=== PATIENT | female | born 1965 | race Caucasian/White ===

== ENCOUNTER → 2017-02-10 | Outpatient (CLI) | payer OTHER ==
[~2017-02-10] MED LIST: ALBUTEROL17 GM INH; CELECOXIB200 MG PO; CHOLESTEROL PILL; CIPRO PO; CYMBALTA PO; DIAZEPAM PO; HYDROCODONE/APA1 T16 PO; LIPITOR40 MG PO; NEURONTIN100 MG PO; PANTOPRAZOLE SO40 MG PO; PYRIDIUM PO; REGLAN PO; STOMACH PILL; TRAZODONE PO; VITAMIN D1000 UNI2 PO; [UNRECOGNIZED DRUG - REMARK]
--- NOTE | ~2017-02-10 | MY11 ---
[facility] A Service of [facility] RADIOLOGY TEXT RESULTS PATIENT: COURTNEY CARRERA LOCATION: [facility] : 63 UNIT #: [id number] AGE: [address]: Umer Sepulveda MD SEX: F ORDER DR: [id number] [facility] [address] [place], [place] [address] [id number] O MR#: [id number] Acc #: [id number] NAME: COURTNEY CARRERA : 1965 SEX: F STUDY DATE/TIME: 02/10/2017 13:40 UNIT: [facility] ROOM: STUDY DESCRIPTION: MY Mammogram Screening Dig [place]wn Attending Physician: Umer Sepulveda M.D. Referring Physician: Umer Sepulveda M.D. Ordering Physician: Umer Sepulveda M.D. Primary Care Physician: Umer Sepulveda M.D. MEDICAL IMAGING REPORT This report is preliminary unless electronic signature is present EXAM Digital screening mammogram, 02/10/2017, [facility]. HISTORY 51-year-old woman no risk elevation. Annual screen. COMPARISON Mammograms date to 09/26/2010 with most recent, 02/06/2016. FINDINGS Digital imaging of each breast was completed utilizing a two-view examination of each breast in craniocaudal and mediolateral-oblique projections. Review and interpretation of digital mammograms include a second review in conjunction with FDA-approved CAD device. There is a normal parenchymal presentation bilaterally consistent with the patient's age. There are no breast masses imaged and no parenchymal asymmetry is visualized. There are no suspicious microcalcifications and I see no focal architectural disturbance. IMPRESSION Negative screening digital mammogram. One-year followup recommended. Patients over the age of 40 are entered into a reminder system with target due date for the next mammogram. A result letter will also be sent to the patient. BIRADS: 1 Negative ADDENDUM Breast parenchyma is predominantly fatty replaced. [facility] A Service of [facility] RADIOLOGY TEXT RESULTS PATIENT: COURTNEY CARRERA LOCATION: [facility] : 63 UNIT #: [id number] AGE: [address]: Umer Sepulveda MD SEX: F ORDER DR: Dictated by... Nitin Suarez M.D. THIS IS AN ELECTRONICALLY VERIFIED REPORT Nitin Suarez M.D. at 02/10/2017 4:00 PM JULISA/benny TD: 02/10/2017 15:54 JOB #: [id number] MEDICAL IMAGING REPORT Page 1 of 1 COPY
== END | disposition home or self-care (01) ==
LOC: CWCC 13:15
DX: Z12.31 Encounter for screening mammogram for malignant neoplasm of breast (principal)
CPT/HCPCS: G0202

== ENCOUNTER → 2017-03-14 | Outpatient (CLI) | payer OTHER ==
--- NOTE | ~2017-03-14 | CT98 ---
[facility] A Service of [facility] & [facility] RADIOLOGY TEXT RESULTS PATIENT: COURTNEY CARRERA LOCATION: [facility] : 63 UNIT #: [id number] AGE: [address]: Micky Marcus MD SEX: F ORDER DR: [id number] [address] [address] [id number] O MR#: [id number] Acc #: [id number] NAME: COURTNEY CARRERA : 1965 SEX: F STUDY DATE/TIME: 03/14/2017 13:30 UNIT: [facility] ROOM: STUDY DESCRIPTION: CT Lumbar Spine Wo Cont Attending Physician: Micky Marcus M.D. Referring Physician: Micky Marcus M.D. Ordering Physician: Micky Marcus M.D. Primary Care Physician: Umer Sepulveda M.D. MEDICAL IMAGING REPORT This report is preliminary unless electronic signature is present. EXAM Lumbar spine CT no contrast DATE 03/14/2017 PROCEDURE Axial unenhanced lumbar CT with multiplanar reformats. This CT exam was performed with one or more of the following radiation dose reduction techniques: automatic exposure control, adjustment of mA and/or kV according to patient size, and iterative reconstruction. COMPARISON Lumbar spine MRI from outside facility dated 12/21/2016 CLINICAL HISTORY Back and right leg pain since February 17, 2017. FINDINGS There has been fusion at 2-3, 3-4 and 4-5. There are bilateral pedicle screws at 2, 3, 4 and 5 and disc prosthetics at each level. There is posterior bone graft material. There is no evidence of device loosening or failure. There is a slight levoscoliosis, centered at L1-2 but alignment is otherwise normal. There is no bone erosion or destruction. The paraspinous tissues are unremarkable. At L2-3, some bone graft material does extend just posterior to posterior disc margin on the far right and may contribute to borderline to mild right foraminal narrowing and perhaps mild right lateral recess compromise, but there is no overall canal stenosis and the left foramen is normal. At 3-4, there may be some leftward posterior extension of disc material STS. [facility] A Service of [facility] & [facility] RADIOLOGY TEXT RESULTS PATIENT: COURTNEY CARRERA LOCATION: [facility] : 63 UNIT #: [id number] AGE: [address]: Micky Marcus MD SEX: F ORDER DR: into the left 3-4 foramen causing mild or [id number] foraminal stenosis, though there is no overall canal stenosis and the right foramen is normal. At 4-5, there is no apparent canal stenosis and perhaps minimal left and no right foraminal stenosis. At 5-1, the canal and foramina are normal. IMPRESSION No device loosening or failure, fracture or bone destruction. See above for level by level details. No acute-appearing abnormality. Dictated by... John Rawls M.D. THIS IS AN ELECTRONICALLY VERIFIED REPORT John Rawls M.D. at 03/19/2017 10:29 AM TEV/to TD: 03/17/2017 20:23 JOB #: [id number] MEDICAL IMAGING REPORT Page 1 of 1
== END | disposition home or self-care (01) ==
LOC: SCT 13:11
DX: M51.36 Other intervertebral disc degeneration, lumbar region (principal)
CPT/HCPCS: 72131